=== PATIENT | male | born 1965 | race Caucasian/White ===

== ENCOUNTER 2022-10-28 11:30 | Emergency (ER) | payer OTHER, SELFPAY ==
[2022-10-28 11:40] VITALS: BP 196/116; PULSE 85; RESP 16; O2SAT 98
--- NOTE | 2022-10-28 11:47 | CTR_ITS ---
PROCEDURE INFORMATION: Exam: CT Head Without Contrast Exam date and time: 10/28/2022 12:33 PM Age: 56 years old Clinical indication: Weakness, facial; Additional info: R sided facial weakness TECHNIQUE: Imaging protocol: Computed tomography of the head without contrast. Radiation optimization: All CT scans at this facility use at least one of these dose optimization techniques: automated exposure control; mA and/or kV adjustment per patient size (includes targeted exams where dose is matched to clinical indication); or iterative reconstruction. REPORTING DATA: Count of CT and Cardiac NM exams in prior 12 months: This patient has received 0 known CTs and 0 known cardiac nuclear medicine studies in the 12 months prior to the current study. COMPARISON: No relevant prior studies available. RADIATION DOSE METRICS: Total DLP (mGy-cm): 1122.78 FINDINGS: Brain: The brain is unremarkable. There is no mass effect or significant white matter disease. There is no acute intracranial hemorrhage. Cerebral ventricles: There is no significant ventricular dilation. The basal cisterns are unremarkable. Paranasal sinuses: The paranasal sinuses are clear. Mastoid air cells: The mastoid air cells are clear. Bones/joints: The calvarium is intact. Soft tissues: The visible extracranial soft tissues are unremarkable. CT/CT head wo con* [id number] IMPRESSION: No acute intracranial abnormality.
[2022-10-28 12:04] LABS: Basophils % 0.6 %; Eosinophils # 0.2 10^3/uL (0.0-0.8); Eosinophils % 3.8 %; Hematocrit 46.4 % (42.0-52.0); Hemoglobin 15.3 g/dL (11.7-16.6); Lymphocytes # 2.6 10^3/uL (0.8-4.8); Lymphocytes % 41.4 %; Mean Corpuscular Volume 81.8 fl (80-94); Mean Platelet Volume 9.3 fL (7.4-10.4); Monocytes # 0.4 10^3/uL (0.2-0.9); Monocytes % 6.4 %; Neutrophils # 2.99 10^3/uL (1.8-7.7); Neutrophils % 47.6 %; Nucleated Red Blood Cells % 0 %; Platelet Count 207 10^3/cmm (130-400); Red Blood Count 5.67 10^6/uL (4.1-5.3); Red Cell Distribution Width 12.8 % (12.1-15.1); White Blood Count 6.3 10^3/uL (4.0-10.0)
[2022-10-28 12:05] VITALS: BP 150/98
--- NOTE | 2022-10-28 12:13 | ECG_ITS ---
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 Measurements Intervals [place] Rate: 77 P: 56 NM: 158 QRS: 86 QRSD: 96 T: -23 QT: 365 QTc: 414 Interpretive Statements SINUS RHYTHM NONSPECIFIC T-WAVE ABNORMALITY No previous ECG available for comparison Electronically Signed On 10-28-2022 16:32:27 CDT by Roberto Linder M.D. [id number]
[2022-10-28 12:28] LABS: Alanine Aminotransferase 14 U/L (0-41); Albumin Level 4.3 g/dL (3.5-5.2); Alkaline Phosphatase 83 U/L (40-130); Blood Urea Nitrogen 19 mg/dL (6-20); Calcium 9.5 mg/dL (8.5-10.5); Carbon Dioxide 28 mmol/L (22-29); Chloride 101 mmol/L (98-107); Creatinine Clr Calc Pharmacy 151.7619; Globulin 2.6 g/dL (1.3-4.6); Glomerular Filtration Rate 100.7 mL/min (90-130); Glucose 234 mg/dL (65-115); Osmolality Calculated 296 mOsm/kg (285-295); Sodium 138 mmol/L (136-145); Total Bilirubin 0.4 mg/dL (0.15-1.2); Total Protein 6.9 g/dL (6.6-8.7)
[2022-10-28 12:29] LABS: Anion Gap 13.3 (5-19); Aspartate Amino Transferase 13 U/L (0-40); Potassium 4.3 mmol/L (3.5-5.1)
[2022-10-28] MEDS: amlodipine 10 mg Tablet PO (12:49)
[2022-10-28] MEDS: hyDRALAzine 20 mg/mL INJ 1 mL IVP (12:50)
[2022-10-28 12:54] VITALS: BP 157/99; PULSE 83; RESP 21; O2SAT 96
--- NOTE | 2022-10-28 13:17 | W.ED.NEUROSD ---
HPI - Neuro Symptoms/Deficit General: Chief Complaint: Neuro Symptoms/Deficit Stated Complaint: facial droop Time Seen by Provider: 10/28/22 11:33 Source: patient Mode of arrival: ambulatory History of Present Illness: 56-year-old male presents emergency room he woke up this morning with a right-sided facial droop involves an entire right side but no other symptoms initially. He has some tingling difficulty with his eye. When I tested him he is actually mildly hyperesthetic on that side. Otherwise his [id number] and other test for ataxia loss of function and sensation are all normal in the upper extremities. He had told his nurse that he felt a little numbness in the left arm but when I tested him with sharp touch he had normal sensation bilaterally. Onset (ago): hour(s) Location: right face History of same: No Severity: moderate Quality: weak Relieving factors: none Exacerbating factors: none Associated symptoms: Deny chest pain, cough, diaphoresis, fevers/chills, headache(s), anorexia, malaise, nausea, seizures, short of breath, syncope, tingling, vertigo, vomiting or weakness Treatments Prior to Arrival: none Review of Systems Const: Denies: fever(s), chills, fatigue, malaise or diaphoresis ENMT: Denies: throat pain, ear or mastoid pain, nasal discharge or nasal congestion Card: Denies: chest pain or syncope Resp: Denies: dyspnea, productive cough or non-productive cough GI: Denies: nausea or vomiting : Denies: flank pain, dysuria, urinary frequency or urinary urgency Skin/Breast: Denies: rash or pruritus Neuro: Denies: headache(s) or vertigo PFS ED PFSH: Social History Smoking and tobacco status: never smoked NIH stroke score NIHSS: Level Of Consciousness - 1a: 0 Level Of Consciousness Questions - 1b: Both Correct Level Of Consciousness Commands - 1c: Both Correct Best Gaze - 2: Normal Visual [place] - 3: No Visual Loss Facial Palsy - 4: Partial Paralysis Motor Arm Right - 5: No Drift Motor Arm Left - 5: No Drift Motor Leg Right - 6: No Drift Motor Leg Left - 6: No Drift Limb Ataxia - 7: Absent Sensory - 8: Normal Best Language - 9: No Aphasia Dysarthia - 10: Normal Extinction And Inattention - 11: 0 Score: Total Score: 2 Physical Exam Const: GENERAL APPEARANCE: cooperative and comfortable ORIENTATION/CONSCIOUSNESS: Yes awake, Yes oriented to person, Yes oriented to place and Yes oriented to time HENMT: COMMON NORMALS: normocephalic, atraumatic and hearing grossly normal bilaterally HEAD & SCALP: normocephalic and atraumatic Resp: COMMON NORMALS: normal respiratory effort, No retractions, No use of accessory muscles and clear to auscultation bilaterally AUSCULTATION: clear to auscultation bilaterally Cardio: COMMON NORMALS: regular rate, regular rhythm and No murmurs present (Cardio) RATE: regular rate RHYTHM: regular rhythm GI: COMMON NORMALS: Soft to palpation and No hepatosplenomegaly present AUSCULTATION: Yes normoactive bowel sounds PALPATION: Yes Soft to palpation, No Tenderness to palpation present (GI), No Guarding due to palpation present (GI) and Yes No hepatosplenomegaly present Extremity: COMMON NORMALS: normal to inspection, capillary refill normal, no clubbing, cyanosis or edema, no calf tenderness and no pedal edema Neuro: SENSORIUM/ORIENTATION: Yes oriented to person, Yes oriented to place and Yes oriented to time Skin: COMMON NORMALS: no rashes or lesions noted GENERAL SKIN EXAM: no rashes or lesions noted Course Vital Signs: Vital signs: Vital Signs Pulse Rate 80 10/28/22 13:47 Respiratory Rate 15 10/28/22 13:47 Blood Pressure 158/96 10/28/22 13:47 Pulse Oximetry 97 10/28/22 13:47 Oxygen Delivery Me thod 10/28/22 12:54 MDM - Neuro Symptoms/Deficit Medical Decision Making Labs imaging and EKG reviewed no acute changes. Based on exam patient has normal NIH with evidence of Quigley's palsy with full involvement of the forehead. We will go and discharge patient home prednisone 50 mg daily for 1 week follow-up with primary care reviewed finding of Quigley's palsy discussed usual course. Medical Records I reviewed the patient's medical records. Lab Data I reviewed the patient's lab results. 10/28/22 11:55 10/28/22 11:[address] 10/28/22 11:47 IMPRESSION: No acute intracranial abnormality. Laboratory Results WBC 6.3 10^3/uL (4.0-10.0) 10/28/22 11:55 RBC 5.67 10^6/uL (4.1-5.3) H 10/28/22 11:55 Hgb 15.3 g/dL (11.7-16.6) 10/28/22 11:55 Hct 46.4 % (42.0-52.0) 10/28/22 11:55 MCV 81.8 fl (80-94) 10/28/22 11:55 MCH 27.0 pg (28.0-34.0) L 10/28/22 11:55 MCHC 33.0 g/dL (30.0-36.0) 10/28/22 11:55 RDW 12.8 % (12.1-15.1) 10/28/22 11:55 Plt Count 207 10^3/cmm (130-400) 10/28/22 11:55 MPV 9.3 fL (7.4-10.4) 10/28/22 11:55 Neut % (Auto) 47.6 % 10/28/22 11:55 Lymph % (Auto) 41.4 % 10/28/22 11:55 [place] % (Auto) 6.4 % 10/28/22 11:55 Eos % (Auto) 3.8 % 10/28/22 11:55 Baso % (Auto) 0.6 % 10/28/22 11:55 Neut # (Auto) 2.99 10^3/uL (1.8-7.7) 10/28/22 11:55 Lymph # (Auto) 2.6 10^3/uL (0.8-4.8) 10/28/22 11:55 [place] # (Auto) 0.4 10^3/uL (0.2-0.9) 10/28/22 11:55 Eos # (Auto) 0.2 10^3/uL (0.0-0.8) 10/28/22 11:55 Baso # (Auto) 0.0 10^3/uL (0.0-0.1) 10/28/22 11:55 Nucleated RBC % (auto) 0 % 10/28/22 11:55 Nucleated RBCs # 0.0 /100WBC 10/28/22 11:55 Sodium 138 mmol/L (136-145) 10/28/22 11:55 Potassium 4.3 mmol/L (3.5-5.1) 10/28/22 11:55 Chloride 101 mmol/L (98-107) 10/28/22 11:55 Carbon Dioxide 28 mmol/L (22-29) 10/28/22 11:55 Anion Gap 13.3 (5-19) 10/28/22 11:55 BUN 19 mg/dL (6-20) 10/28/22 11:55 Creatinine 0.8 mg/dL (0.7-1.2) 10/28/22 11:55 GFR Calculation 100.7 mL/min (90-130) 10/28/22 11:55 Glucose 234 mg/dL (65-115) H 10/28/22 11:55 Calculated Osmolality 296 mOsm/kg (285-295) H 10/28/22 11:55 Calcium 9.5 mg/dL (8.5-10.5) 10/28/22 11:55 Total Bilirubin 0.4 mg/dL (0.15-1.2) 10/28/22 11:55 AST 13 U/L (0-40) 10/28/22 11:55 ALT 14 U/L (0-41) 10/28/22 11:55 Alkaline Phosphatase 83 U/L (40-130) 10/28/22 11:55 Total Protein 6.9 g/dL (6.6-8.7) 10/28/22 11:55 Albumin 4.3 g/dL (3.5-5.2) 10/28/22 11:55 Globulin 2.6 g/dL (1.3-4.6) 10/28/22 11:55 Discharge Plan Discharge Patient Disposition: Home Clinical Impression: Quigley's palsy Condition: Stable Prescriptions: New prednisone 50 mg tablet 50 mg PO DAILY 7 Days Qty: 7 0RF Discharge Orders: Discharge ED (Routine); Ordered 10/28/22 Ordered By: Fran Brown Referrals: Neymar Perkins MD [Primary Care Provider] - Discharge Diet: Usual diet Discharge Activity: Increase activity as tolerated Patient Instructions: Quigley Palsy (ED), Opioid Safety, Pain Management Activity Restrictions/Additional Instructions: You were seen today for Quigely's palsy tinnitus in the facial nerve which resulted in a facial droop tearing of the eyelid and difficulty with managing liquids. Recommend he start on prednisone 50 mg daily for 7 days follow-up with your primary care doctor. Coding Level of Care Code ED Daily Release [employer] Printer for Raven Zambrano
[2022-10-28 13:47] VITALS: BP 158/96; PULSE 80; RESP 15; O2SAT 97
== END 2022-10-28 13:48 | disposition home or self-care (01) ==
PROVIDERS: Emergency Provider Family Medicine; PCP Family Medicine
DX: G51.0 Bell's palsy (principal)
CPT/HCPCS: 70450; 80053; 85025; 93005; 96374; 99285; J0360

== ENCOUNTER → 2022-11-05 16:07 | Outpatient (BNVA) | payer OTHER, SELFPAY | PROVIDERS: PCP Family Medicine; Visit Provider Family Medicine | DX: I10 Essential (primary) hypertension (principal); R73.9 Hyperglycemia, unspecified | CPT/HCPCS: 80061; 83036 ==

== ENCOUNTER → 2023-03-25 16:15 | Outpatient (BNVA) | payer OTHER, SELFPAY | PROVIDERS: PCP Family Medicine; Visit Provider Family Medicine | DX: E11.9 Type 2 diabetes mellitus without complications (principal) | CPT/HCPCS: 80053; 83036 ==

== ENCOUNTER → 2024-03-22 08:59 | Outpatient (BNVA) | payer OTHER, SELFPAY | PROVIDERS: PCP Family Medicine; Referring Provider Family Medicine; Visit Provider Psychiatry & Neurology Neurology | DX: I10 Essential (primary) hypertension (principal); G51.0 Bell's palsy | CPT/HCPCS: 36415; 82306; 82607; 82746; 83090; 83735; 83921; 84439; 84443; 84481; 85651; 86140; 86160; 86162; 86235; 86255; 86376; 86431; 86592; 86617 ==

== ENCOUNTER 2024-04-13 12:48 | Outpatient (CLI) | payer OTHER, SELFPAY ==
--- NOTE | 2024-04-13 13:00 | MR_ITS ---
WS: [id number] MRI HEAD WITH CONTRAST TECHNIQUE: Sagittal T1, T2 axial, T2 axial FLAIR, axial susceptibility weighted imaging, axial diffus ion weighted images, and coronal T2 images were obtained. Pre and post-T1 axial and post T1 coronal i mages. ADC and FSPGR images. CLINICAL INFORMATION: G51.0 - Quigley's palsy COMPARISON: CT head 10/28/2022 FINDINGS: Some images degraded by motion artifact. No evidence of restricted diffusion to suggest acute ischemia. Ventricular system and basilar cistern s are patent. Mild small vessel changes. No significant parenchymal volume loss. Normal posterior fos sa. Normal vascular flow voids at the skull base. No extra-axial fluid collections. No evidence of ma ss or mass effect. Paranasal sinuses are well aerated. Normal posterior nasopharynx. Mastoid air cell s are well aerated. No hemosiderin on susceptibility-weighted images. Normal optic chiasm and pituitary infundibulum. Tem poral lobes and hippocampal formations are normal in appearance. No visualized IAC or CP angle mass. No abnormal intracranial enhancement. Normal dural venous sinuses . Asymmetric enhancement in the RIGHT IAC involving the fundus with prominent enhancement involving the labyrinthine and tympanic segments of the RIGHT facial nerve. This can be seen with Quigley's palsy. No evidence of focal mass or lesion along the 7th cranial nerve where visualized. MR/MR head wo/w con [id number] IMPRESSION: Some images degraded by motion. 1. No evidence of restricted diffusion to suggest acute ischemia. 2. Mild small vessel changes. No significant parenchymal volume loss. 3. No hemosiderin on the susceptibly weighted images. 4. Enhancement in the RIGHT fundal tuft extending into the labyrinthine and ty mpanic segments of the RIGHT 7th cranial nerve typical for Quigley's palsy 5. No abnormal intracranial enhancement. If follow-up imaging is performed recommend IAC protocol without and with gadol inium enhancement for better anatomic detail.
== END 2024-04-13 12:49 | disposition home or self-care (01) ==
LOC: RAD 12:48
PROVIDERS: PCP Family Medicine; Visit Provider Psychiatry & Neurology Neurology
DX: G51.0 Bell's palsy (principal); I10 Essential (primary) hypertension
CPT/HCPCS: 70553; A9577

== ENCOUNTER → 2024-10-05 11:11 | Outpatient (BNVA) | payer OTHER, SELFPAY | PROVIDERS: PCP Family Medicine; Visit Provider Family Medicine | DX: E11.9 Type 2 diabetes mellitus without complications (principal); I10 Essential (primary) hypertension | CPT/HCPCS: 80053; 82306; 83036 ==